=== PATIENT | male | born 1965 | race Caucasian/White ===

== ENCOUNTER → 2020-08-10 10:37 | Outpatient (BNVA) | payer OTHER, SELFPAY | PROVIDERS: Visit Provider Physician Assistant Medical | DX: S80.01XA Contusion of right knee, initial encounter (principal); W18.09XA Striking against other object with subsequent fall, initial encounter | CPT/HCPCS: 99202 ==

== ENCOUNTER → 2022-03-14 09:20 | Outpatient (BNVA) | payer MEDICAID, SELFPAY | PROVIDERS: Visit Provider Internal Medicine | DX: M79.661 Pain in right lower leg (principal); M79.662 Pain in left lower leg; M21.371 Foot drop, right foot; E11.40 Type 2 diabetes mellitus with diabetic neuropathy, unspecified; Z79.4 Long term (current) use of insulin | CPT/HCPCS: 99202 ==

== ENCOUNTER 2022-04-19 15:17 | Outpatient (REF) | payer MEDICAID, SELFPAY ==
--- NOTE | ~2022-04-19 | US_ITS ---
EXAMINATION: ULTRASOUND EXTREMITY NONVASCULAR. CLINICAL INFORMATION: Pain in the right and left legs behind the knee. Evaluate for Guerra's cyst. COMPARISON: None TECHNIQUE: Sonographic evaluation of both the right and left popliteal fossa. FINDINGS: No Guerra's cyst seen in either the right or left popliteal fossa. No focal abnormality. US/US extremity nonvascular eli IMPRESSION: There is no Guerra's cyst identified in the right or left knee.
== END 2022-04-19 15:18 | disposition home or self-care (01) ==
LOC: HO.HMGCX 15:17
PROVIDERS: Visit Provider Internal Medicine
DX: M79.661 Pain in right lower leg (principal); M79.662 Pain in left lower leg
CPT/HCPCS: 76882

== ENCOUNTER → 2022-05-16 10:38 | Outpatient (BNVA) | payer MEDICAID, SELFPAY | PROVIDERS: Visit Provider Internal Medicine | DX: E11.40 Type 2 diabetes mellitus with diabetic neuropathy, unspecified (principal); M21.371 Foot drop, right foot; Z79.899 Other long term (current) drug therapy | CPT/HCPCS: 99212 ==

== ENCOUNTER 2022-08-31 11:22 | Day surgery (SDC) | payer MEDICAID, SELFPAY ==
[2022-08-25 13:01] VITALS: BMI 28.9
--- NOTE | 2022-08-25 13:46 | HO.ANESPROP2 ---
Documented by User: Sonya Herron NP 08/30/22 11:21 HPI - Anesthesia Eval Consult details Narrative: 57yo M for Thoracolumbar Spinal Cord Stimulation Trial Stable at 05/2022 cardiology visit (CAD with stent, hx in-stent thrombosis requiring thrombectomy and dilation of BMS 2015) [facility] Active Problems Active Problems: All Active Problems (Updated 08/25/22 @ 12:58 by Megha Adhikari RN) Bilateral calf pain (Acute) Right foot drop (Acute) Painful diabetic neuropathy (Acute) Insulin dependent type 2 diabetes mellitus (Acute) Past Medical History Medical History CAD (coronary artery disease) COVID-19 vaccine series completed GERD (gastroesophageal reflux disease) History of MRSA infection HTN (hypertension) Hyperlipidemia Insulin dependent type 2 diabetes mellitus Medical marijuana use Myocardial infarction Presence of stent in coronary artery in patient with coronary artery disease Surgical History Surgical History H/O colonoscopy History of ankle surgery History of esophagogastroduodenoscopy (EGD) Hx of heart artery stent Social History Social History Are you a primary palliative care specialist to a significant other at home: No Do you presently have visiting nurse or other home services: No Patient Tobacco Use Status: Never used Tobacco Meds Allergies Allergy/AdvReac Type Severity Reaction Status Date / Time No Known Allergies Allergy Verified 05/16/22 10:47 [No Known Allergies*] Home Medications Medication Instructions Recorded Confirmed Last Taken Type atorvastatin 80 mg tablet 80 mg PO BEDTIME 03/14/22 08/31/22 Unknown History lisinopril 20 mg tablet 20 mg PO QAM 03/14/22 08/31/22 Unknown History metoprolol tartrate 100 mg tablet 100 mg PO BEDTIME 03/14/22 08/31/22 Unknown History tamsulosin 0.4 mg capsule 0.4 mg PO BEDTIME 03/14/22 08/31/22 Unknown History hydroxyzine HCl 50 mg tablet 50 mg PO TID PRN anxiety 05/16/22 08/31/22 Unknown History magnesium oxide 400 mg (241.3 mg 400 mg PO QAM 05/16/22 08/31/22 Unknown History magnesium) tablet quetiapine 100 mg tablet 150 mg PO BEDTIME 05/16/22 08/31/22 Unknown History tramadol 50 mg tablet 50 mg PO Q8H PRN Pain 05/16/22 08/31/22 Unknown History insulin glargine 100 unit/mL (3 62 unit subcut BID 08/25/22 08/31/22 Unknown History mL) subcutaneous pen (Lantus Solostar U-100 Insulin) insulin lispro 100 unit/mL 0 - 22 unit subcut TIDAC 08/25/22 08/31/22 Unknown History subcutaneous solution Exam Exam Date and Time: August 25, 2022 1346 Height,Weight and Vital Signs: Height 5 ft 9 in Weight 88.904 kg Pertinent Lab Results Pertinent Lab Results: 04/2022 CBC and BMP from outside facility WNL Narrative Narrative: EKG 05/2022 NSR Low volt QRS Cannot r/o Inferior infarct No significant change from previous NM Myocard Perf Stress Test 05/2021 1. Myocardial perfusion imaging is normal in the setting of diaphragm attenuation artifact without any fixed or reversible perfusion defect after exercise stress test. 2. LV function is nml with EF 59% at rest and low with EF of 49% with stress with nml wall motion and thickening. 3. EKG portion of stress test reported seperately ECHO 2020 Nml LV systolic function (EF 55-65%) No signif wall motion abn Indeterminate LV diastolic function Nml LV size. Mildly increased LV wall thickness. Nml RV systolic function. Nml RV size. No signif valve abnormalities Assessment and Plan Assessment Anesthesia Assessment: Chart Reviewed Documented by User: Emanuel Javier MD 08/31/22 16:41 [facility] Past Medical History Medical History CAD (coronary artery disease) COVID-19 vaccine series completed GERD (gastroesophageal reflux disease) History of MRSA infection HTN (hypertension) Hyperlipidemia Insulin dependent type 2 diabetes mellitus Medical marijuana use Myocardial infarction Presence of stent in coronary artery in patient with coronary artery disease Functional capacity: uses cane/walker Family History Family history of problems with anesthesia: No Surgical History Surgical History H/O colonoscopy History of ankle surgery History of esophagogastroduodenoscopy (EGD) Hx of heart artery stent History of Problems with Anesthesia: No Social History Social History Are you a primary palliative care specialist to a significant other at home: No Do you presently have visiting nurse or other home services: No Patient Tobacco Use Status: Never used Tobacco Meds Allergies Allergy/AdvReac Type Severity Reaction Status Date / Time No Known Allergies Allergy Verified 05/16/22 10:47 [No Known Allergies*] Home Medications Medication Instructions Recorded Confirmed Last Taken Type atorvastatin 80 mg tablet 80 mg PO BEDTIME 03/14/22 08/31/22 Unknown History lisinopril 20 mg tablet 20 mg PO QAM 03/14/22 08/31/22 Unknown History metoprolol tartrate 100 mg tablet 100 mg PO BEDTIME 03/14/22 08/31/22 Unknown History tamsulosin 0.4 mg capsule 0.4 mg PO BEDTIME 03/14/22 08/31/22 Unknown History hydroxyzine HCl 50 mg tablet 50 mg PO TID PRN anxiety 05/16/22 08/31/22 Unknown History magnesium oxide 400 mg (241.3 mg 400 mg PO QAM 05/16/22 08/31/22 Unknown History magnesium) tablet quetiapine 100 mg tablet 150 mg PO BEDTIME 05/16/22 08/31/22 Unknown History tramadol 50 mg tablet 50 mg PO Q8H PRN Pain 05/16/22 08/31/22 Unknown History insulin glargine 100 unit/mL (3 62 unit subcut BID 08/25/22 08/31/22 Unknown History mL) subcutaneous pen (Lantus Solostar U-100 Insulin) insulin lispro 100 unit/mL 0 - 22 unit subcut TIDAC 08/25/22 08/31/22 Unknown History subcutaneous solution Exam Airway Mallampati Class: III TM Dist: >3cm Neck ROM: Full Loose/Missing/Broken Teeth: Yes (Chipped teeth multiple , poor dentition ) Heart: S1,S2 Lungs: b/l breath sounds Assessment and Plan Assessment Anesthesia Assessment: Anesthesia Plan Discussed Final Anesthetic Review Family History of Problems with Anesthesia: No History of Problems with Anesthesia: No NPO: Yes ASA Class: III Final Preanesthetic Review: Meds/Allgs Chart Reviewed, Consent Obtained/Reviewed and Anes Risks/Benef Reviewed Patient Risk: Intermediate Procedure Risk: Intermediate Anesthetic Plan Anesthetic Plan: MAC: Disposition: Standard PACU
--- NOTE | ~2022-08-31 | FL_ITS ---
EXAMINATION: XR FLUOROSCOPY WITH IMAGES CLINICAL INFORMATION: Spinal cord stimulation trial COMPARISON: Chest 20 03/14/2016 TECHNIQUE: Fluoroscopy Supervised By: Dr. Teo Allred. Fluoroscopy Time: 2.3 minutes. Cumulative Dose: 81.1 mGy. DAP: 14.1 Gycm2. Images: 5. FINDINGS: There are 2 spinal stimulator electrodes seen ascending the posterior spinal canal. The electrode tips are at level of mid thoracic spine. There is no visible kinking or defect of the leads. FL/FL guidance in OR IMPRESSION: Fluoroscopy for pain management procedure.
[2022-08-31 11:57] VITALS: BP 97/70; PULSE 86; RESP 17; TEMP 36.6; O2SAT 99
[2022-08-31 12:07] LABS: Glucose, Whole Blood 122 mg/dL (60-115)
[2022-08-31] MEDS: Lactated Ringers 1,000 ML 100 ML IVCONT (12:07)
--- NOTE | 2022-08-31 12:18 | MHC.SHP ---
Pre-Procedural Eval Section A Date of Service: 08/31/22 The patient is an INPATIENT: No Changes since office visit: Yes Patient answered all questions The History & Physical has been completed within 30 days and I have reviewed it.: No Section B Chief Complaint: Type 2 diabetes mellitus with diabetic neuropathy Relevant Family History (Specify if Yes): No Relevant Social History: None Present Medications: see Short Stay Collaborative assessment Medical History: No relevant PMH History of Previous Operations: No relevant previous surgery Allergies: Allergies Allergy/AdvReac Type Severity Reaction Status Date / Time No Known Allergies Allergy Verified 05/16/22 10:47 [No Known Allergies*] Review of Systems Sugical H&P ROS: Negative: Constitution, Cardiovascular, Respiratory and Neurological Exam Surgical H&P Exam: Normal: HEENT and Normal: Skin Plan Diagnosis/Plan: Unchanged I have reviewed the history and physical and performed a pertinent physical examination on my patient. No changes have occurred unless specified.
--- NOTE | 2022-08-31 12:19 | PM.OP ---
Brief Operative Note Date of Service: 08/31/22 Pre-op diagnosis: Painful diabetic neuropathy Post-op diagnosis: same Procedure: Thoracolumbar SCS trial Implants: Nevro HFX SCS trial leads Surgeon: Teo Allred MD Anesthesia: MAC Was an [employer] used for this Procedure?: No Estimated blood loss (mL): 2 Pathology: none sent Condition: stable Disposition: PACU
--- NOTE | 2022-08-31 12:20 | W.PM.OPN ---
Operative Note Operative Note Date of Service: 08/31/22 Narrative: Percutaneous Spinal Cord Stimulator Trial, Thoracolumbar After obtaining written consent, pre-procedure blood pressure and heart rate were recorded and are in the nursing record for review. A peripheral IV was started. Antibiotics, cefazolin 2 gram, were given intraoperatively. The patient was placed in a prone position. Standard monitors were applied.? The patient was sedated by the anesthesiologist. The thoracolumbar area was widely prepped with ChloraPrep, allowed to dry and draped in sterile fashion. Fluoroscopy was used to identify the L1/L2 interlaminar spaces and appropriate needle insertion sites. The skin and subcutaneous tissue was anesthetized with a mixture containing 1% lidocaine with 1:200,000 epinephrine and 0.5% ropivacaine. Two separate 14 gauge Tuohy epidural needles were then advanced in a paramedian approach to the epidural space opening at L1/L2 interspace, where lost of resistance was found using air. No paresthesias were elicited with needle placement. No CSF or heme was present upon needle placement. A guide wire was then used to confirm placement into the epidural space at each level under live fluoroscopy. The 1x8 stimulator lead wire was then threaded to the top of T8 in the left parasagittal position and bottom electrode on top of of T12 in the right parasagittal position under live fluoroscopy. The leads advanced midline.? The Tuohy needles were then completely removed under live fluoroscopy. The stimulator wires were then secured with 0 Tycron sutures to the skin and reinforced with steristrips, gauze and tegaderm for skin dressing. The patient tolerated the procedure well and no complications were encountered. Following the procedure the patient's vital signs were stable in the PACU. The patient was discharged home in good condition after being given discharge instructions. Time Out: Immediately prior to the procedure, the following was verbally confirmed that there is a signed consent form and that the correct patient, planned procedure, site and side are consistent with documentation and that necessary equipment and/or blood products are available prior to the start of the case. Complications: none EBL: <2 cc
[2022-08-31 13:26] LABS: MRSA Nasal PCR NEGATIVE (Negative); SA Nasal PCR POSITIVE (Negative)
[2022-08-31 14:35] VITALS: BP 117/76; PULSE 96; RESP 16; TEMP 36.7; O2SAT 98
[2022-08-31 14:50] VITALS: BP 147/93; PULSE 91; RESP 16; O2SAT 98
[2022-08-31 15:05] VITALS: BP 142/85; PULSE 92; RESP 18; TEMP 36.1; O2SAT 98
[2022-08-31 15:20] VITALS: BP 151/84; PULSE 85; RESP 18; TEMP 36.1; O2SAT 97
== END 2022-08-31 15:47 | disposition home or self-care (01) ==
PROVIDERS: Nurse Practitioner Family; PCP Internal Medicine; Visit Provider Internal Medicine
PROC: (CPT 63650; principal; 2022-08-31 12:30)
DX: E11.40 Type 2 diabetes mellitus with diabetic neuropathy, unspecified (principal); I10 Essential (primary) hypertension; I25.10 Atherosclerotic heart disease of native coronary artery without angina pectoris; I25.2 Old myocardial infarction; Z95.5 Presence of coronary angioplasty implant and graft; Z79.4 Long term (current) use of insulin; Z79.899 Other long term (current) drug therapy; Z86.14 Personal history of Methicillin resistant Staphylococcus aureus infection
CPT/HCPCS: 63650 ×2; 82947; 87640; 87641; C1897; J0690; J2250; J2795; J3010

== ENCOUNTER 2022-09-09 11:17 | Outpatient (REF) | payer MEDICAID, SELFPAY | END 2022-09-09 11:18 | disposition home or self-care (01) | LOC: HO.LAB 11:17 | PROVIDERS: PCP Internal Medicine; Visit Provider Internal Medicine | DX: E11.40 Type 2 diabetes mellitus with diabetic neuropathy, unspecified (principal); Z79.4 Long term (current) use of insulin; Z79.899 Other long term (current) drug therapy | CPT/HCPCS: 99212 ==

== ENCOUNTER 2022-10-05 11:22 | Day surgery (SDC) | payer MEDICAID, SELFPAY ==
[2022-10-05] VITALS (7 sets, daily range): BP systolic 89–135; BP diastolic 64–89; PULSE 80–94; RESP 16–17; TEMP 36.2–37.1; O2SAT 97–98; BMI 28.0
--- NOTE | ~2022-10-05 | FL_ITS ---
EXAMINATION: XR FLUOROSCOPY WITH IMAGES CLINICAL INFORMATION: Spinal stimulator implant. COMPARISON: Fluoroscopic spot views spine 08/31/2022 TECHNIQUE: Fluoroscopy Supervised By: Dr. Teo Allred. Fluoroscopy Time: 2.0 minutes. Cumulative Dose: 60.5 mGy. DAP: 7.51 Gycm2. Images: 12. FINDINGS: There are 2 spinal stimulator electrodes seen ascending the posterior spinal canal. The electrode tips are at level of mid thoracic spine. There is no visible kinking or defect of the leads. FL/FL guidance in OR IMPRESSION: Fluoroscopy for pain management procedure.
--- NOTE | 2022-10-05 11:51 | MHC.SHP ---
Pre-Procedural Eval Section A Date of Service: 10/11/22 The patient is an INPATIENT: No Changes since office visit: Yes Patient answered all questions The History & Physical has been completed within 30 days and I have reviewed it.: Yes Section B Chief Complaint: Type 2 diabetes mellitus with diabetic neuropathy, Relevant Family History (Specify if Yes): No Relevant Social History: None Present Medications: see Short Stay Collaborative assessment Medical History: Significant History (DM) History of Previous Operations: No relevant previous surgery Allergies: Allergies Allergy/AdvReac Type Severity Reaction Status Date / Time No Known Allergies Allergy Verified 09/09/22 10:51 [No Known Allergies*] Review of Systems Sugical H&P ROS: Negative: Constitution, Cardiovascular and Respiratory Exam Surgical H&P Exam: Normal: HEENT, Normal: Heart and Normal: Lungs Plan Diagnosis/Plan: Unchanged I have reviewed the history and physical and performed a pertinent physical examination on my patient. No changes have occurred unless specified. Time Spent With Patient Time: Total time managing care of this patient today ____ minutes.
--- NOTE | 2022-10-05 12:00 | HO.ANESPROP2 ---
HPI - Anesthesia Eval Consult details Narrative: chronic pain PMFSH Active Problems Active Problems: All Active Problems (Updated 08/25/22 @ 12:58 by Megha Adhikari RN) Bilateral calf pain (Acute) Right foot drop (Acute) Painful diabetic neuropathy (Acute) Insulin dependent type 2 diabetes mellitus (Acute) Past Medical History Medical History CAD (coronary artery disease) COVID-19 vaccine series completed GERD (gastroesophageal reflux disease) History of MRSA infection HTN (hypertension) Hyperlipidemia Insulin dependent type 2 diabetes mellitus Medical marijuana use Myocardial infarction Presence of stent in coronary artery in patient with coronary artery disease Family History Family history of problems with anesthesia: No Surgical History Surgical History H/O colonoscopy History of ankle surgery History of esophagogastroduodenoscopy (EGD) Hx of heart artery stent History of Problems with Anesthesia: No Social History Social History Are you a primary child care lead teacher to a significant other at home: No Do you presently have visiting nurse or other home services: No Patient Tobacco Use Status: Never used Tobacco Second Hand Smoke Exposure: No Use of substances other than those prescribed or required for medical reasons: No Are you DNR?: No Advance Directives: No Advance Directives Information Provided: Yes Advance Directives on File: No Meds Allergies Allergy/AdvReac Type Severity Reaction Status Date / Time No Known Allergies Allergy Verified 09/09/22 10:51 [No Known Allergies*] Active Medications: Current Medications Vancomycin HCl 1,500 mg/ (Sodium Chloride) 500 mls @ 333.333 mls/hr IV ONCE ONE Stop: 10/05/22 13:17 Pharmacy Consult (Consult Rx Vancomycin Dosing) 1 each MISCELLANE DAILY PRN PRN Reason: Consult order Home Medications Medication Instructions Recorded Confirmed Last Taken Type atorvastatin 80 mg tablet 80 mg PO BEDTIME 03/14/22 09/09/22 Unknown History metoprolol tartrate 100 mg tablet 100 mg PO BEDTIME 03/14/22 09/09/22 Unknown History tamsulosin 0.4 mg capsule 0.4 mg PO BEDTIME 03/14/22 09/09/22 Unknown History hydroxyzine HCl 50 mg tablet 50 mg PO TID PRN anxiety 08/22/22 12/16/22 Unknown History magnesium oxide 400 mg (241.3 mg 400 mg PO QAM 05/16/22 09/09/22 Unknown History magnesium) tablet quetiapine 100 mg tablet 150 mg PO BEDTIME 05/16/22 09/09/22 Unknown History tramadol 50 mg tablet 50 mg PO Q8H PRN Pain 05/16/22 09/09/22 Unknown History insulin glargine 100 unit/mL (3 62 unit subcut BID 08/25/22 09/09/22 Unknown History mL) subcutaneous pen (Lantus Solostar U-100 Insulin) insulin lispro 100 unit/mL 0 - 22 unit subcut TIDAC 08/25/22 09/09/22 Unknown History subcutaneous solution finasteride 5 mg tablet 5 mg PO DAILY 09/09/22 09/09/22 Unknown History pantoprazole 40 mg tablet,delayed 40 mg PO DAILY 09/09/22 09/09/22 Unknown History release trazodone 50 mg tablet 100 mg PO BEDTIME 09/09/22 09/09/22 Unknown History Exam Exam Date and Time: October 05, 2022 1200 Height,Weight and Vital Signs: Height 5 ft 9 in Weight 86.183 kg Airway Mallampati Class: II TM Dist: >3cm Neck ROM: Full Heart: rr Lungs: cta Assessment and Plan Final Anesthetic Review Family History of Problems with Anesthesia: No History of Problems with Anesthesia: No ASA Class: II Final Preanesthetic Review: No Changes in Pt Med Stat, Meds/Allgs Chart Reviewed, Consent Obtained/Reviewed and Anes Risks/Benef Reviewed Patient Risk: Intermediate Procedure Risk: Low Anesthetic Plan Anesthetic Plan: GA Disposition: Standard PACU
[2022-10-05 12:24] LABS: Glucose, Whole Blood 153 mg/dL (60-115)
[2022-10-05] MEDS: vancomycin HCL 1,500 MG in 0.9 % Sodium Chloride 500 ML 333.33 MG IV (12:25)
--- NOTE | 2022-10-05 16:17 | PM.OP ---
Brief Operative Note Date of Service: 10/05/22 Pre-op diagnosis: Painful Diabetic Neuropathy Post-op diagnosis: same Procedure: Thoracolumbar Spinal Cord Stimulator Implant Implants: Nevro HFX SCS system, two leads and one IPG Surgeon: Teo Allred MD Anesthesia: GETA Was an Obstetrics/Gynecology Nurse used for this Procedure?: No Estimated blood loss (mL): 5 Pathology: none sent Condition: stable Disposition: PACU
--- NOTE | 2022-10-05 16:19 | P.OP_ITS ---
Operative Note Operative Note Date of Service: 10/05/22 Narrative: Thoracolumbar SCS Implant After proper identification, the patient was brought to the operating room. After prone positioning, patient was induced for general anesthesia and intubated. Care was taken during positioning to protect and pad all pressure points. Vancomycin 1.5 gram was given as preoperative antibiotic prophylaxis due to positive MRSA screen. The back was prepped and draped in the usual sterile fashion using Chloroprep. The fluoroscope unit was sterilely draped and brought into field, the T12/L1 interspace was localized with fluoroscopy after the skin was anesthetized with 0.25% ropivicaine and 0.5% lidocaine using a 25-gauge needle. A 6 cm incision was then made in the midline back with a 15 blade between the L1 and L2 spinous processes. Electrocautery was used to dissect down to the prevertebral fascia. Two 14-gauge introducer Tuohy needles were advanced using AP and contralateral oblique fluoroscopy views to the target interspace on either side of the L1 spinous process. Upon loss of resistance, a flexible stylet was advanced and verified to be in the epidural space.? The left electrode was then threaded up to the top of T8 vertebral body. The right electrode was threaded such that the bottom electrode was slightly above the top of the T12 vertebral body. With the needles covering the leads, we placed 2 sets of Tycron sutures per electrode for the anchor stitches. We then backed out the needle under live fluoroscopy, verifying that the electrodes were in the correct position and we then used the locking anchors to secure the electrodes down to the prevertebral fascia, tying them down with the Tycron sutures. At this point, a pocket for the generator was made in the left iliac fossa. With the skin and subcutaneous tissues anesthetized with 0.25% ropivicaine and 0.5% lidocaine, a horizontal 2- inch incision was made using a 15 blade and combination of sharp dissection, blunt dissection and electrocautery was used. A pocket was created about half an inch below the skin. The pocket was then irrigated with normal saline containing vancomycin. Hemostasis was attained with electrocautery. We then tunneled the electrodes from the back into the pocket using the tunneling device. The electrodes were then connected to the generator. A single Tycron suture was thrown across the floor of the pocket and through the medial anchor to hold the generator in place. The IPG was then tucked into the pocket with the IPG covering the excess lead coils. Both incision sites were then thoroughly irrigated with vancomycin solution. Hemostasis was ensured. Subsequently the fascial layers were closed with a running 2-0 Tycron suture. The dermis was closed with 3-0 Vicryl interrupted sutures. The subcuticular layer was closed with 4-0 Vicryl running suture. The incisions were then dressed with Exofin, Steri-Strips gauze and Tegaderm. An abdominal wall binder was applied to the patient's iliac fossa region. The patient was then flipped supine and woken up. The patient was brought to the PACU where he was monitored for safety and comfort, prior to being discharged in a stable condition. The patient's neurologic exam was consistent with his baseline at the time of discharge.
== END 2022-10-05 16:48 | disposition home or self-care (01) ==
PROVIDERS: PCP Internal Medicine; Visit Provider Internal Medicine
PROC: (CPT 63685; principal; 2022-10-05 12:30)
DX: E11.40 Type 2 diabetes mellitus with diabetic neuropathy, unspecified (principal); G89.29 Other chronic pain; I25.10 Atherosclerotic heart disease of native coronary artery without angina pectoris; I25.2 Old myocardial infarction; Z98.61 Coronary angioplasty status; I10 Essential (primary) hypertension; E78.5 Hyperlipidemia, unspecified; Z86.14 Personal history of Methicillin resistant Staphylococcus aureus infection; Z79.4 Long term (current) use of insulin; Z79.899 Other long term (current) drug therapy; F12.90 Cannabis use, unspecified, uncomplicated
CPT/HCPCS: 63685; 63650 ×2; 82947; C1713; C1778; C1787; C1816; J0330; J2250; J2405; J2795; J3010; J3370; J3371

== ENCOUNTER → 2022-10-10 11:21 | Outpatient (BNVA) | payer MEDICAID, SELFPAY | PROVIDERS: PCP Internal Medicine; Visit Provider Internal Medicine | DX: E11.40 Type 2 diabetes mellitus with diabetic neuropathy, unspecified (principal) | CPT/HCPCS: 99212 ==

== ENCOUNTER → 2022-10-17 12:51 | Outpatient (BNVA) | payer MEDICAID, SELFPAY | PROVIDERS: PCP Internal Medicine; Visit Provider Internal Medicine | DX: E11.40 Type 2 diabetes mellitus with diabetic neuropathy, unspecified (principal) | CPT/HCPCS: 99212 ==